=== PATIENT | male | born 1980 | race Two or more races ===

== ENCOUNTER 2017-05-16 18:29 | Emergency (ER) | payer SELFPAY ==
--- NOTE | 2017-05-16 18:39 | EDPHY ---
H & P Time Seen by Provider: 05/16/17 18:32 HPI/ROS: Chief complaint: Mental health hold History of present illness: This is a 36-year-old male who is brought to the emergency department by the [facility]'s office on a mental health hold for suicidal ideation. Apparently patient texted a friend that he was thinking of killing himself. The friend contacted the [facility]'s department who contacted the patient and placed him on a mental health hold and brought him here. The senior grants officer did show me the texts that patient wrote that basically stated he wanted to kill himself and he wanted the pain to be over and he wished he had been a better friend. On my evaluation patient is very upset. He denies suicidal ideation. He denies homicidal ideation. He denies illness or injury. Review of systems: A 10 point review of systems is obtained and other than described above is negative (Geovanni Franklin) - Physical Exam Exam: General Appearance: Alert, nontoxic. Eyes: Pupils equal and round no pallor or injection. ENT, Mouth: Mucous membranes moist. Respiratory: There are no retractions, lungs are clear to auscultation. Cardiovascular: Regular rate and rhythm. Gastrointestinal: Abdomen is soft and nontender, no masses, bowel sounds normal. Neurological: Alert. Strength and sensation intact and symmetrical. Skin: Warm and dry, no rashes. Musculoskeletal: Neck is supple nontender. Extremities are symmetrical, full range of motion. Psychiatric: Patient is very agitated and verbally aggressive toward staff. ( Geovanni Franklin) Constitutional: Initial Vital Signs Temperature (C) 37.2 C 05/16/17 18:52 Heart Rate 94 05/16/17 18:52 Respiratory Rate 18 05/16/17 18:52 Blood Pressure 156/109 H 05/16/17 18:52 O2 Sat (%) 97 05/16/17 18:52 O2 Delivery Mode Room Air Allergies/Adverse Reactions: No Known Allergies Allergy (Unverified 05/16/17 18:50) Home Medications: Medication Instructions Recorded Ambien 05/16/17 Zoloft 100mg (*) 05/16/17 Medical Decision Making ED Course/Re-evaluation: Patient seen under the supervision of my secondary supervising physician Dr. John Nixon. Patient presents on a mental health hold. He is medically evaluated , is intoxicated will need to sober up before he can be evaluated. Care of the patient is turned over Dr. John Nixon at end of shift. (Geovanni Franklin) 6:15 a.m. the patient's blood alcohol 44. Mental health is on their way to evaluate him. Care transferred to Dr. Sagar Galindo at shift change. (Ricardo Bernardo) Differential Diagnosis: Included but not limited to substance abuse, anxiety, depression, bipolar (Geovanni Franklin) Other Provider: PHYSICIAN DOCUMENTATION: The patient was evaluated and managed by the Physician Freelance Director and myself. I have reviewed the chart and agree with the findings and plan of care as documented. In addition, I examined the patient myself at on arrival. History confirmed as from sharps officer as patient sent a text to a friend at 5:45 p.m. tonight referencing suicidal ideation. Physical findings as follows: Ambulatory, not ataxic, initially verbally combative. Screening labs and urine. Is on a mental health hold by police. 2315: Signed out to Dr. Bernardo with plan for mental health evaluation when clinically sober. I am the secondary supervising physician. (John Nixon) I assumed care of the patient at 7 o'clock in the morning pending psychiatric disposition. Update at 8:15 a.m.: Patient was seen in consultation by Psychiatry. The patient is now clare for safety. The patient does have a follow-up appointment with his regular therapist next week. The patient presents after having made suicidal statements while intoxicated. The patient states that he is no longer suicidal. He was somewhat despondent over a recent loss of a potential job. The patient does agree to return to the emergency department immediately for any worsening symptoms or other concerns. (Sagar Galindo) - Data Points Laboratory Results: Laboratory Results 05/16/17 18:48 05/16/17 18:48 05/17/17 04:25 Urine Opiates Screen NEGATIVE (NEGATIVE) Urine Barbiturates NEGATIVE (NEGATIVE) Ur Phencyclidine Scrn NEGATIVE (NEGATIVE) Ur Amphetamine Screen NEGATIVE (NEGATIVE) U Benzodiazepines Scrn NEGATIVE (NEGATIVE) Urine Cocaine Screen NEGATIVE (NEGATIVE) U Marijuana (THC) Screen NON-NEGATIVE H (NEGATIVE) Departure - Departure Disposition: Home, Routine, Self-Care Clinical Impression: Suicidal ideation Alcohol intoxication Qualifiers: Complication of substance-induced condition: uncomplicated Qualified Code(s): F10.920 - Alcohol use, unspecified with intoxication, uncomplicated Condition: Good Instructions: Alcohol Intoxication (ED) Additional Instructions: 1. Please follow-up with the mental health resources provided in the ED today. 2. [facility] does operate a 24/7 psychiatric crisis unit located at [address] [place] [address]. The telephone number for the 24 hour crisis center is [phone]. 3. Please return to the ED if you are feeling suicidal, having thoughts of harming yourself/others or should you feel unsafe or have worsening symptoms. Referrals: [facility],. [Clinic] - As per Instructions
[2017-05-16 18:56] LABS: % IMMATURE GRANULYOCYTES 0.2 % (0.0-1.1); ABSOLUTE IMMATURE GRANULOCYTES 0.02 10^3/uL (0.00-0.10); ADD DIFF? NO; ADD MORPH? NO; ADD SCAN? NO; ATYPICAL LYMPHOCYTE FLAG 0 (0-99); FRAGMENT RBC FLAG 0 (0-99); HEMATOCRIT 49.9 % (40.0-51.0); HEMOGLOBIN 17.3 g/dL (13.7-17.5); LEFT SHIFT FLG 0 (0-99); LIPEMIA HEMOLYSIS FLAG 90 (0-99); MEAN CELL HEMOGLOBIN 31.7 pg (27.9-34.1); MEAN CELL HEMOGLOBIN CONCENTR. 34.7 g/dL (32.4-36.7); MEAN CELL VOLUME 91.4 fL (81.5-99.8); MEAN PLATELET VOLUME 9.9 fL (8.7-11.7); PLATELET CLUMPS FLAG 10 (0-99); PLATELET COUNT 297 10^3/uL (150-400); RED BLOOD CELL COUNT 5.46 10^6/uL (4.40-6.38); RED CELL DISTRIBUTION WIDTH 13.2 % (11.5-15.2)
[2017-05-16 19:32] LABS: ANION GAP 24 mEq/L (8-16); CALCIUM 9.7 mg/dL (8.5-10.4); CARBON DIOXIDE 15 mEq/l (22-31); CHLORIDE 108 mEq/L (97-110); ETHANOL SERUM 227 mg/dL (0-10); GLOMERULAR FILTRATION RATE > 60; GLUCOSE 93 mg/dL (70-100); POTASSIUM 3.7 mEq/L (3.5-5.2); SALICYLATE < 1.0 mg/dL (2.0-20.0); SODIUM 147 mEq/L (134-144)
[2017-05-17 06:42] VITALS: RESP 16
[2017-05-17 08:25] VITALS: BP 155/91; PULSE 95; TEMP 98.8; O2SAT 97
== END 2017-05-17 08:36 | disposition home or self-care (01) ==
LOC: EEVIPCON 18:29
DX: R45.851 Suicidal ideations (principal); F10.920 Alcohol use, unspecified with intoxication, uncomplicated
CPT/HCPCS: 80305; G0480